=== PATIENT | female | born 1955 | race Caucasian/White ===

== ENCOUNTER → 2020-11-26 | Outpatient (CLI) | payer MEDICARE ==
--- NOTE | 2020-11-26 14:46 | RAD ---
AP and Lateral Views of the Chest 11/26/2020 12:15 PM Indication: Reason: Cough and stuffy nose. Covid + October 28. / Spl. Instructions: / History: Comparison: None Findings: Approximately 8 mm nodular opacity projects over the left lower lung. Recommend routine CT follow-up. There is no focal consolidation or infiltrate identified. Heart size is normal.. There is no evidence of pneumothorax or pleural effusion. No acute osseous abnormalities are identified. Impression 1. 8 mm nodular opacity projecting over left lung base. CT follow-up recommended. 2. No other acute cardiopulmonary process is identified Electronically signed by: Carlos Mar MD (11/26/2020 2:44 PM) [id number]
== END ==
LOC: RAD 11:44
PROVIDERS: ATTEND Physician Assistant Medical
DX: U07.1 COVID-19 (principal); R05 Cough; R06.02 Shortness of breath; R91.8 Other nonspecific abnormal finding of lung field
CPT/HCPCS: 71046

== ENCOUNTER → 2021-03-17 | Outpatient (CLI) | payer MEDICARE ==
[~2021-03-17] MED LIST: ALPR0.5T6 PO; AMLO-187 PO; DOCU-153 PO; HYDR-2763 PO; LEVO175T5 PO; LISI1TAB37 PO; MELO15TA23 PO; METF-658 PO; METH-562 PO; OXYC1TAB15 PO; PREG-9 PO
[2021-03-17 13:18] LABS: BASO # 0.1 x10^3/uL (0.0-0.2); BASO % 1 % (0-3); EOS # 0.2 x10^3/uL (0.0-0.7); EOS % 3 % (0-3); HEMATOCRIT 44.2 % (36.0-47.0); HEMOGLOBIN 15.4 g/dL (12.0-15.5); LYMPH # 3.4 x10^3/uL (1.0-4.8); LYMPH % 42 % (24-48); MEAN CORPUSCULAR HEMOGLOBIN 31 pg (25-35); MEAN CORPUSCULAR HGB CONC 35 g/dL (31-37); MEAN CORPUSCULAR VOLUME 90 fL (79-100); MONO # 0.7 x10^3/uL (0.0-1.1); MONO % 9 % (0-9); NEUT # 3.7 x10^3/uL (1.8-7.7); NEUT % 45 % (31-73); PLATELET COUNT 235 x10^3/uL (140-400); RED BLOOD COUNT 4.92 x10^6/uL (3.50-5.40); RED CELL DISTRIBUTION WIDTH 13.3 % (11.5-14.5); WHITE BLOOD COUNT 8.1 x10^3/uL (4.0-11.0)
[2021-03-17 13:37] LABS: ALBUMIN 4.1 g/dL (3.4-5.0); ALBUMIN/GLOBULIN RATIO 1.2 (1.0-1.7); CALCIUM 9.1 mg/dL (8.5-10.1); CREATININE 0.7 mg/dL (0.6-1.0); POTASSIUM 3.8 mmol/L (3.5-5.1); TOTAL BILIRUBIN 0.6 mg/dL (0.2-1.0); TOTAL PROTEIN 7.6 g/dL (6.4-8.2)
== END ==
LOC: SURGPAT 12:25
PROVIDERS: ATTEND Neurological Surgery
DX: Z01.818 Encounter for other preprocedural examination (principal); M48.062 Spinal stenosis, lumbar region with neurogenic claudication; M54.16 Radiculopathy, lumbar region
CPT/HCPCS: 36415; 80053; 85025; 87641; 93005

== ENCOUNTER → 2021-03-20 | Outpatient (CLI) | payer MEDICARE | LOC: LAB 14:19 | PROVIDERS: ATTEND Neurological Surgery | DX: Z01.812 Encounter for preprocedural laboratory examination (principal); M48.062 Spinal stenosis, lumbar region with neurogenic claudication; M54.16 Radiculopathy, lumbar region; Z20.822 Contact with and (suspected) exposure to COVID-19 | CPT/HCPCS: U0003; U0005 ==

== ENCOUNTER 2021-03-23 07:19 | Observation (INO) | payer MEDICARE ==
[2021-03-17 13:01] VITALS: BP 148/92
--- NOTE | 2021-03-22 19:00 | HP ---
ADMIT DATE: 03/23/2021 PREOPERATIVE HISTORY AND PHYSICAL HISTORY OF PRESENT ILLNESS: The patient is a pleasant 65-year-old who is having difficulty with low back pain and pain that radiates to both of her hips and buttocks as well as her legs. The right leg is more involved than the left. The problem has been present for years and is slowly worsening. She rates her pain 8/10 constantly. She says it is 6/10 with medication. Walking, standing and activity increases her pain. Leaning back increases her pain. Leaning forward helps her. She uses a heating pad, ice and medications to help. She takes [place] 7.5 which she says is no longer helpful. She also takes ibuprofen. She has had 2 epidural steroid injections which she said helped her left leg pain some. The most recent injection was done in 08/2020. Her right leg is involved diffusely. CURRENT MEDICATIONS: ____, alprazolam, Synthroid, meloxicam, lisinopril, hydrocodone. PAST MEDICAL HISTORY: Hypertension, Shingles, thyroid disease, COVID-19. PAST SURGICAL HISTORY: D and C, hemorrhoidectomy, . FAMILY HISTORY: Hypertension. SOCIAL HISTORY: Retired, , nonsmoker, drinks 2 alcoholic beverages per day. ALLERGIES: No known drug allergies. REVIEW OF SYSTEMS: A 12-point review of systems was performed and is noncontributory except as mentioned above. PHYSICAL EXAMINATION: GENERAL: Alert, pleasant, in no acute distress. HEENT: Head is normocephalic, atraumatic. SKIN: Warm and dry. MUSCULOSKELETAL: Lumbar paraspinal muscle bulk is normal, restricted range of motion of the lumbar spine, [id number] tenderness of the lower lumbar spine with palpation, normal range of motion of the lower extremities bilaterally. EXTREMITIES: No clubbing, cyanosis or edema. NEUROLOGIC: Alert and oriented x 3. Strength is 5/5 in the bilateral lower extremities, sensory was intact to light touch in the lower extremities bilaterally, reflexes were present and symmetric in the lower extremities bilaterally, negative straight leg raising bilaterally, normal gait. IMAGING DATA: I reviewed a lumbar MRI scan. On that study, there are severe changes appear to be at L2-L3 and L3-L4. At L3-L4, the canal measures about 7 mm and 5 mm on the right side. There are osteophytes extending off the right facet joint which is markedly narrowing the canal at that level. At L2-L3, the primary problem is epidural lipomatosis which is associated with an element of stenosis of moderate degree. She does have some changes at L4-L5, but I feel they are less significant than they are at L2-L3 and L3-L4. ASSESSMENT AND PLAN: I feel that problems at L2-L3 and L3-L4 are responsible for her significant right greater than left leg pain. I recommended a right direct laminectomy at L2-L3 and bilateral lumbar microdecompressive surgery at L3-L4 to see how she does. I did discuss with her the surgery and the risk as well as the expected postoperative course. I explained to her that we are not dealing with all of her lumbar issues, but the area that I felt were more significant. I outlined the risks of surgery including dural injury, infection and failure to improve. I also outlined the expected postoperative course. She understands and would like to go ahead. KORY/JONATHAN/JOSEFINA DR: [place] TID: [id number]
[2021-03-23] VITALS (11 sets, daily range): BP systolic 120–137; BP diastolic 59–76
[~2021-03-23] VITALS: Ht 162.6 cm; Wt 105.0 kg
[~2021-03-23 07:19] MED LIST changes: +BUPIVACAINE-EPI 0.5%-1:200000 MPF 30 ML VIAL. ONE; -DOCU-153 PO; +GELATIN SPONGE SIZE 100. ONE; +HYDROmorphone 2 MG/ML VIAL IVP PRN; +IV RINGERS,LACTATED 1000ML 1,000 ML IV SCH; +KETOROLAC 60 MG/2 ML VIAL. ONE; -METH-562 PO; -OXYC1TAB15 PO; +THROMBIN TOPICAL 20,000 UNIT SPRAY.SYRN KIT TP ONE; +fentaNYL PF VIAL 100 MCG/2 ML VIAL IVP PRN
[2021-03-23] MEDS ORDERED: MIDAZOLAM HCL/PF 2 MG/2 ML VIAL. ONE (08:03)
[2021-03-23] MEDS ORDERED: REMIFENTANIL 2 MG VIAL. IV ONE (08:03)
[2021-03-23] MEDS ORDERED: ROCURONIUM 50 MG/5 ML VIAL. ONE (08:03)
[2021-03-23] MEDS ORDERED: PROPOFOL 50 ML IV ONE ×2 (08:04→09:18)
[2021-03-23] MEDS ORDERED: KETOROLAC 30 MG/ML VIAL. ONE (08:04)
[2021-03-23] MEDS ORDERED: DESFLURANE > 120 MINUTES IH ONE (08:04)
[2021-03-23] MEDS ORDERED: PROPOFOL 10 MG/ML (20ML) VIAL. IV ONE (08:04)
[2021-03-23] MEDS ORDERED: DEXAMETHASONE SOD PHOS 20 MG/5 ML VIAL. ONE (08:04)
[2021-03-23] MEDS ORDERED: ONDANSETRON PF 4 MG/2 ML VIAL. ONE (08:04)
[2021-03-23] MEDS ORDERED: LIDOCAINE 2% PF 5 ML VIAL. ONE (08:04)
[2021-03-23] MEDS ORDERED: PHENYLEPHRINE 10 MG/ML VIAL. ONE ×2 (08:04→10:59)
[2021-03-23] MEDS ORDERED: GLYCOPYRROLATE 1 MG/5 ML VIAL. ONE (08:11)
[2021-03-23] MEDS ORDERED: KETAMINE HCL IN NACL, ISO-OSM 50 MG/5 ML SYRINGE ONE (09:10)
[2021-03-23] MEDS ORDERED: GELATIN SPONGE SIZE 100. ONE (10:54)
[2021-03-23] MEDS ORDERED: REMIFENTANIL 1 MG VIAL. IV ONE (10:59)
[2021-03-23] MEDS ORDERED: NEOSTIGMINE METHYLSULFATE 5 MG/5 ML SYRINGE. ONE (11:35)
[2021-03-23] MEDS ORDERED: diphenhydrAMINE HCL 25 MG CAPSULE PO PRN (12:00)
[2021-03-23] MEDS ORDERED: NALOXONE 0.4 MG/ML VIAL. IV PRN (12:00)
[2021-03-23] MEDS ORDERED: HYDROcodone/APAP 7.5/325MG 1 TAB TABLET PO PRN (12:00)
[2021-03-23] MEDS ORDERED: 0.9 % SODIUM CHLORIDE 10 ML DISP.SYRIN. IV PRN (12:00)
[2021-03-23] MEDS ORDERED: MAG HYDROX/ALUMINUM HYD/SIMETH 30 ML ORAL.SUSP PO PRN (12:00)
[2021-03-23] MEDS ORDERED: ALPRAZolam 0.5 MG TABLET PO PRN (12:00)
[2021-03-23] MEDS ORDERED: DEXTROSE 50% 25 GM / 50ML DISP.SYRIN. IV PRN (12:00)
[2021-03-23] MEDS ORDERED: CALCIUM CARBONATE 500 MG TAB.CHEW PO PRN (12:00)
[2021-03-23] MEDS ORDERED: MAGNESIUM HYDROXIDE 2,400 MG/30 ML ORAL.SUSP. PO PRN (12:00)
[2021-03-23] MEDS ORDERED: ACETAMINOPHEN 325 MG TABLET. PO PRN (12:00)
[2021-03-23] MEDS ORDERED: PROCHLORPERAZINE 10 MG/2 ML VIAL. ONE (12:05)
[2021-03-23] MEDS ORDERED: fentaNYL PF VIAL 100 MCG/2 ML VIAL ONE (12:05)
[2021-03-23] MEDS: PROCHLORPERAZINE 10 MG/2 ML VIAL. IVP PRN ×2 (12:11→12:19)
[2021-03-23] MEDS: fentaNYL PF VIAL 100 MCG/2 ML VIAL IVP PRN ×5 (12:13→17:57)
[2021-03-23] MEDS ORDERED: MORPHINE SULFATE 2 MG/ML VIAL. ONE ×2 (12:31→13:01)
[2021-03-23] MEDS: MORPHINE SULFATE 2 MG/ML VIAL. IVP PRN ×4 (12:38→13:14)
[2021-03-23] MEDS: POTASSIUM CL 20MEQ-0.45% NACL 1,000 ML IV SCH (13:00)
--- NOTE | 2021-03-23 13:39 | OP ---
DATE OF SURGERY: 03/23/2021 PREOPERATIVE DIAGNOSES: 1. Lumbar spinal stenosis, lateral recess stenosis, L3-L4. 2. Lateral recess stenosis, L2-L3 with lumbar radiculopathy. OPERATION PERFORMED: Bilateral hemilaminotomy, decompression of dura and nerve root L3-4, L2-3 right, hemilaminotomy and microdecompression. The operation was done with EMG monitoring, SSEP monitoring, fluoroscopy, microscopic dissection. SPECIMEN: Decompression. SURGEON: Hernan Brennan M.D. STOKER INSTALLER: JOSEPH Gaffney assisted with the surgery. She assisted with the exposure, the microdecompression as well as the closure. OPERATIVE INDICATIONS: The patient has developed slowly progressive pain in her back and both legs, right greater than left for a years. The pain has reached virtually unbearable levels. She did have 2 epidural steroid injections without benefit. On imaging study with the above-mentioned findings and I recommended lumbar microsurgery. I discussed the surgery and the risks. I spoke about the expected postoperative course. She understood the risk of infection and failure to improve, worsening of condition. She understood that the risk of anesthesia including pneumonia. She and her both well understood the operation and the rationale for surgery and wished for me to go ahead. DESCRIPTION OF PROCEDURE: Following general endotracheal anesthesia, an incision was made using fluoroscopic guidance extending from L2 to L4. The dissection was carried down through the skin and subcutaneous tissue, reflected the paraspinal muscles to the right and placed a Vulcan microdisk retractor. I brought in the microscope and beginning at L3-L4 and burred down a very generous hemilaminotomy. I grasped the very thickened ligamentum flavum and peeled it down lateral to the dura and nerve root. There was a thickened excrescence of ligament, which was densely adherent to the dura and I worked and thinned this material down, but it was impossible to safely remove it without a high risk dural laceration. However, I did very well decompressed the dura and the exiting root. I performed a partial foraminotomy. I moved to the midline and removed some of the epidural fat and then I went to L2-L3 and performed the identical operation at L2-L3. At this level, the dura was not densely adherent to the ligament and I trimmed it away. I performed a partial foraminotomy and fully decompressed L2-L3 right and then went to the left side and performed the identical operation at L3-L4 left. At this level, there was some scarring of the ligament to the dura, but I was able to dissect this free, trimmed it away. I performed a partial foraminotomy. The disc was flat, no discectomy was warranted. I did use small amounts of bone wax. I irrigated copiously. I removed the retractors and obtained hemostasis in the muscle. I closed the wound in layers with absorbable suture. The skin was closed with 4-0 subcuticular stitch. I felt the surgery went very well. [facility] [place] DR: Christoph TID: [id number] FIORELLA
--- NOTE | 2021-03-23 14:00 | NUR ---
recieved from recovery. dressing is clean dry and intact. she complains of being uncomfortable. family at bedside. she is able to move all extremities without difficulty. she does have some discomfort in her right hip area. she has good sensation, pulses and motion in lower extremities.
--- NOTE | 2021-03-23 15:00 | NUR ---
ambulated to the bathroom and voided without problems. complaining of pain of "6". medicated with fentanyl and Robaxin.
[2021-03-23] MEDS: METHOCARBAMOL 750 MG TABLET PO PRN (15:02)
[2021-03-23] MEDS: metFORMIN XR 500 MG TAB.ER.24H PO SCH (17:29)
[2021-03-23] MEDS: DOCUSATE SODIUM 100 MG CAPSULE. PO SCH (20:17)
[2021-03-23] MEDS: PREGABALIN 75 MG CAPSULE PO SCH (20:18)
[2021-03-23] MEDS: HYDROcodone/APAP 7.5/325MG 1 TAB TABLET PO PRN (20:19)
--- NOTE | 2021-03-23 20:38 | NUR ---
FSBS 278. Patient stated she had been eating several of the licorice sticks in big bag of licorice at bedside.
[2021-03-24] MEDS: METHOCARBAMOL 750 MG TABLET PO PRN ×2 (00:01→08:07)
[2021-03-24] MEDS: HYDROcodone/APAP 7.5/325MG 1 TAB TABLET PO PRN (02:57)
[2021-03-24] MEDS: POTASSIUM CL 20MEQ-0.45% NACL 1,000 ML IV SCH (03:04)
[2021-03-24 03:06] VITALS: BP 144/72
[2021-03-24 05:51] VITALS: BP 151/76
[2021-03-24] MEDS ORDERED: LEVOTHYROXINE 175 MCG TABLET PO SCH (06:00)
[2021-03-24] MEDS ORDERED: oxyCODONE/APAP 5/325 1 TAB TABLET PO PRN ×2 (08:00)
[2021-03-24] MEDS: DOCUSATE SODIUM 100 MG CAPSULE. PO SCH (08:07)
[2021-03-24] MEDS: PREGABALIN 75 MG CAPSULE PO SCH (08:07)
[2021-03-24 08:08] VITALS: BP 151/76
[2021-03-24] MEDS: metFORMIN XR 500 MG TAB.ER.24H PO SCH (08:08)
[2021-03-24] MEDS ORDERED: hydroCHLOROthiazide 12.5 MG CAPSULE PO SCH (09:00)
[2021-03-24] MEDS ORDERED: MELOXICAM 7.5 MG TABLET PO SCH (09:00)
[2021-03-24] MEDS ORDERED: LISINOPRIL 20 MG TABLET PO SCH (09:00)
[2021-03-24] MEDS ORDERED: amLODIPine BESYLATE 10 MG TABLET PO SCH (09:00)
[2021-03-24] MEDS ORDERED: OXYC1TAB15 PO (12:19)
[2021-03-24] MEDS ORDERED: DOCU-153 PO (12:19)
--- NOTE | 2021-03-24 12:20 | DISCH ---
DISCHARGE INSTRUCTIONS Condition on Discharge Condition on Discharge: Stable Activity After Discharge Activity Instructions for Disc: Activity as tolerated, Avoid exertion, Prog ressive ambulation Bathing Instructions: Shower-keep dressing dry, No Tub Bath until see Lifting Instructions after Dis: No heavy lifting, No pulling or pushing, Do not lift >10 pounds Exercise Instruction after Dis: Progress as tolerated Driving Instructions after Dis: Do not drive Weight Bearing Status after Di: As tolerated Diet after Discharge Diet after Discharge: Regular Additional Diet Restrictions: resume home diet Liquid Texture: Thin Liquid Wound Incision Care Wound/Incision Care: Ice to area for comfort, Change dressing, May get incision wet, Reinforce dressing PRN Other wound/incision instructi: May shower 48 hours after surgery. Remove dressing. Replace as desired. Wound Care Equipment: Dressings Checks after Discharge Checks after discharge: Check blood press - daily, Check your Temp as needed Contacting the [facility] after DC Call your doctor for: Concerns you may have Follow-Up Follow Up With: Dr Oliva's nurse in two weeks [phone] Treatment/Equipment after DC Adaptive Equipment Issued: None GAYLE OLIVA MD March 24, 2021 12:20
[2021-03-24] MEDS ORDERED: METH-562 PO (12:26)
--- NOTE | 2021-03-24 13:23 | NUR ---
Patient left with her around 1320. Discharge education completed by this nurse, therapy, Dr Brennan, and LETY Booker prior to discharge. Dressing changed to lower back. IV discontinued. Patient refusing EVE hose at this time. No concerns noted at discharge.
--- NOTE | 2021-03-25 15:08 | PATHOLOGY ---
[facility] Accession Number: [id number] . 01 Material submitted: . vertebral column - LUMBAR DECOMPRESSION . 01 Clinical history: . LUMBAR STENOSIS AND RADICULOPATHY LUMBAR LAMINECTOMY L2-3 LUMBAR MICRODECOMPRESSION L3-4 . 02 Diagnosis: Segments of fibrocartilaginous, adipose, and skeletal muscle tissue and bone, lumbar decompression: - Degenerative changes of fibrocartilaginous tissue. (JPM:brittany; 03/25/2021) R 03/25/2021 1225 Local . 02 Comment: There is no evidence of an acute inflammatory process or malignancy. (JPM:brittany; 03/25/2021) . 02 Electronically signed: . Venancio Dickerson MD, Pathologist NPI- [id number] . 01 Gross description: . The specimen is received in formalin, labeled "Haylee Lindsay", "lumbar decompression". Received are multiple fragments of glistening, slightly gritty pale martinez-valero soft tissue and possible bone, measuring 4.5 x 4.2 x 0.4 cm in aggregate dimensions. Pet Trainer sections are submitted in cassette A1, following light decalcification.(SNA; 03/24/2021) JONELLE/GHANSHYAM 03/24/2021 0901 Local . 02 Pathologist provided ICD-10: M51.36 . 02 CPT . 874640, [id number] Specimen Comment: A courtesy copy of this report has been sent to [phone] Specimen Comment: Report sent to Performed at: [address], [place], [place] [id number] MD Daerk Foreman MD Phone: [phone] Performed at: 02 [facility] [address] [place], [place] [id number] MD Venancio Dickerson MD Phone: [phone]
== END 2021-03-24 13:26 | disposition home or self-care (01) ==
LOC: SURG 07:19 → 4 SOUTHEST 11:48
PROVIDERS: ADMIT Neurological Surgery; ATTEND Neurological Surgery
DX: M48.061 Spinal stenosis, lumbar region without neurogenic claudication (principal); M54.16 Radiculopathy, lumbar region; I10 Essential (primary) hypertension; E07.9 Disorder of thyroid, unspecified; Z79.899 Other long term (current) drug therapy
CPT/HCPCS: 63030; 63035; 76000; 82962; 88304; 88311; 96361; 96374; 96376; 97116; 97162; 97530; A4364; A4930; A6254; A6258; G0378; G0379; J0690; J0780; J1100; J1885; J2250; J2270; J2370; J2405; J2704; J2710; J3010; J3480; J3490; A4222; A4452